=== PATIENT | female | born 2000 | race Caucasian/White ===

== ENCOUNTER 2018-08-06 16:56 | Emergency (ER) | payer SELFPAY ==
--- NOTE | 2018-08-06 17:04 | ER Report ---
History and Physical Time Seen By MD: 17:04 HPI/ROS CHIEF COMPLAINT: Chest pain HISTORY OF PRESENT ILLNESS: 18-year-old female patient presents to emergency room with complaint of chest pain. Patient states that she's this chest pain started approximately 20 minutes prior to arrival. Patient states that she's been doing well today. She had gone up and done some hiking and been home for a couple hours. She states that she was just sitting around watching television when she developed chest pain. She states the pain seems to be substernal. It is at the top one third of the chest. She states that she has some shortness of breath, she denies having any nausea, vomiting or diarrhea. Patient states that she has a history of a ventricular tachycardia. She states she was seen in the emergency room approximately one year ago for this. She states that it resolves spontaneously without any medications. She denies taking any medications at this time. REVIEW OF SYSTEMS: Respiratory: As noted above. Cardiovascular: As noted above Gastrointestinal: No vomiting, no abdominal pain. Musculoskeletal: No back pain. Allergies: Coded Allergies: No Known Drug Allergies (Unverified , 08/06/18) Home Meds Reported Medications Sertraline Hcl (ZOLOFT) 50 Mg Tablet, 1 TAB PO QDAY, TAB 08/06/18 Past Medical/Surgical History Patient has a past medical history of sinus tachycardia, rare alcohol use. Patient has a surgical history of tonsillectomy. Reviewed Nurses Notes: Yes Constitutional Vital Sign - Last 24 Hours 08/06/18 08/06/18 08/06/18 08/06/18 16:56 17:00 17:02 17:03 Temp 97.4 Pulse ??? 111 Resp 22 B/P (MAP) 118/81 (93) 120/84 (96) 120/84 Pulse Ox 99 O2 Delivery Room Air 08/06/18 08/06/18 08/06/18 08/06/18 17:06 17:16 17:26 17:30 Pulse 113 104 101 Resp 20 15 44 B/P (MAP) 91/63 (72) Pulse Ox 100 100 100 08/06/18 08/06/18 08/06/18 08/06/18 17:36 17:40 17:46 17:56 Pulse 99 98 ??? Resp 37 38 B/P (MAP) 95/71 (79) Pulse Ox 100 100 08/06/18 08/06/18 08/06/18 08/06/18 18:06 18:07 19:19 19:50 Temp 97.6 97.9 Pulse ??? B/P (MAP) 105/68 (80) Physical Exam General Appearance: The patient is alert, has no immediate need for airway protection and no current signs of toxicity. Respiratory: Chest is non tender, lungs are clear to auscultation. Patient is tachypneic. Cardiac: regular rhythm, patient does have a elevated heart rate of 103 bpm Gastrointestinal: Abdomen is soft and non tender, no masses, bowel sounds normal. Musculoskeletal: Neck: Neck is supple and non tender. Extremities have full range of motion and are non tender. Skin: No rashes or lesions. DIFFERENTIAL DIAGNOSIS: After history and physical exam differential diagnosis was considered for chest pain including but not limited to myocardial ischemia, pericarditis pulmonary embolus, chest wall pain, pleural inflammation and pu lmonary infectious causes. Medical Decision Making Data Points Result Diagram: 08/06/18 1708 08/06/18 1708 Laboratory Hematology Test 08/06/18 17:08 08/06/18 18:10 Red Blood Count 4.74 M/uL (4.17-5.56) Mean Corpuscular Volume 86.0 fL (80.0-96.0) Mean Corpuscular Hemoglobin 28.6 pg (26.0-33.0) Mean Corpuscular Hemoglobin Concent 33.3 g/dL (32.0-36.0) Red Cell Distribution Width 13.5 % (11.5-14.5) Mean Platelet Volume 7.4 fL (7.2-11.1) Neutrophils (%) (Auto) 70.7 % (39.4-72.5) Lymphocytes (%) (Auto) 19.7 % (17.6-49.6) Monocytes (%) (Auto) 8.8 % (4.1-12.4) Eosinophils (%) (Auto) 0.2 % (0.4-6.7) Basophils (%) (Auto) 0.6 % (0.3-1.4) Nucleated RBC Relative Count (auto) 0.0 /100WBC Neutrophils # (Auto) 9.0 K/uL (2.0-7.4) Lymphocytes # (Auto) 2.5 K/uL (1.3-3.6) Monocytes # (Auto) 1.1 K/uL (0.3-1.0) Eosinophils # (Auto) 0.0 K/uL (0.0-0.5) Basophils # (Auto) 0.1 K/uL (0.0-0.1) Nucleated RBC Absolute Count (auto) 0.00 K/uL D-Dimer Quantitative (PE/DVT) < 0.27 ug/ml (0-0.50) Sodium Level 137 mmol/L (137-145) Potassium Level 3.5 mmol/L (3.5-5.0) Chloride Level 104 mmol/L (98-107) Carbon Dioxide Level 23 mmol/L (22-31) Blood Urea Nitrogen 12 mg/dl (7-18) Creatinine 0.80 mg/dl (0.52-1.04) Glomerular Filtration Rate Calc > 60.0 Random Glucose 119 mg/dl (75-110) Calcium Level 9.1 mg/dl (8.4-10.2) Total Bilirubin 0.4 mg/dl (0.2-1.3) Aspartate Amino Transf (AST/SGOT) 31 U/L (0-35) Alanine Aminotransferase (ALT/SGPT) 21 U/L (0-56) Alkaline Phosphatase 62 U/L (0-126) Troponin I 0.618 ng/ml Total Protein 6.5 g/dl (6.3-8.2) Albumin 3.9 g/dl (3.5-5.0) Human Chorionic Gonadotropin, Qual Negative (NEGATIVE) Urine Color Yellow Urine Clarity Clear Urine pH 7.0 pH (4.8-9.5) Urine Specific [place] 1.009 Urine Protein Negative mg/dL (NEGATIVE) Urine Glucose (UA) Negative mg/dL (NEGATIVE) Urine Ketones Trace mg/dL (NEGATIVE) Urine Blood Negative (NEGATIVE) Urine Nitrite Negative (NEGATIVE) Urine Bilirubin Negative (NEGATIVE) Urine Urobilinogen Negative mg/dL (0.2-1.9) Urine Leukocyte Esterase Negative (NEGATIVE) Urine RBC None /HPF (0-2/HPF) Urine WBC <1 /HPF (0-5/HPF) Urine Squamous Epithelial Cells Moderate /LPF (</=FEW) Urine Bacteria Negative /HPF (NONE-FEW) Urine Mucus Few /HPF (NONE-FEW) Urine Opiates Screen Negative Urine Barbiturates Screen Negative Ur Tricyclic Antidepressants Screen Negative Urine Phencyclidine Screen Negative Urine Amphetamines Screen Negative Urine Benzodiazepines Screen Negative Urine Cocaine Screen Negative Urine Cannabinoids Screen Negative Chemistry Test 08/06/18 17:08 08/06/18 18:10 White Blood Count 12.7 k/uL (4.5-11.0) Red Blood Count 4.74 M/uL (4.17-5.56) Hemoglobin 13.6 g/dL (12.0-16.0) Hematocrit 40.7 % (34.0-47.0) Mean Corpuscular Volume 86.0 fL (80.0-96.0) Mean Corpuscular Hemoglobin 28.6 pg (26.0-33.0) Mean Corpuscular Hemoglobin Concent 33.3 g/dL (32.0-36.0) Red Cell Distribution Width 13.5 % (11.5-14.5) Platelet Count 357 K/uL (150-450) Mean Platelet Volume 7.4 fL (7.2-11.1) Neutrophils (%) (Auto) 70.7 % (39.4-72.5) Lymphocytes (%) (Auto) 19.7 % (17.6-49.6) Monocytes (%) (Auto) 8.8 % (4.1-12.4) Eosinophils (%) (Auto) 0.2 % (0.4-6.7) Basophils (%) (Auto) 0.6 % (0.3-1.4) Nucleated RBC Relative Count (auto) 0.0 /100WBC Neutrophils # (Auto) 9.0 K/uL (2.0-7.4) Lymphocytes # (Auto) 2.5 K/uL (1.3-3.6) Monocytes # (Auto) 1.1 K/uL (0.3-1.0) Eosinophils # (Auto) 0.0 K/uL (0.0-0.5) Basophils # (Auto) 0.1 K/uL (0.0-0.1) Nucleated RBC Absolute Count (auto) 0.00 K/uL D-Dimer Quantitative (PE/DVT) < 0.27 ug/ml (0-0.50) Glomerular Filtration Rate Calc > 60.0 Calcium Level 9.1 mg/dl (8.4-10.2) Total Bilirubin 0.4 mg/dl (0.2-1.3) Aspartate Amino Transf (AST/SGOT) 31 U/L (0-35) Alanine Aminotransferase (ALT/SGPT) 21 U/L (0-56) Alkaline Phosphatase 62 U/L (0-126) Troponin I 0.618 ng/ml Total Protein 6.5 g/dl (6.3-8.2) Albumin 3.9 g/dl (3.5-5.0) Human Chorionic Gonadotropin, Qual Negative (NEGATIVE) Urine Color Yellow Urine Clarity Clear Urine pH 7.0 pH (4.8-9.5) Urine Specific [place] 1.009 Urine Protein Negative mg/dL (NEGATIVE) Urine Glucose (UA) Negative mg/dL (NEGATIVE) Urine Ketones Trace mg/dL (NEGATIVE) Urine Blood Negative (NEGATIVE) Urine Nitrite Negative (NEGATIVE) Urine Bilirubin Negative (NEGATIVE) Urine Urobilinogen Negative mg/dL (0.2-1.9) Urine Leukocyte Esterase Negative (NEGATIVE) Urine RBC None /HPF (0-2/HPF) Urine WBC <1 /HPF (0-5/HPF) Urine Squamous Epithelial Cells Moderate /LPF (</=FEW) Urine Bacteria Negative /HPF (NONE-FEW) Urine Mucus Few /HPF (NONE-FEW) Urine Opiates Screen Negative Urine Barbiturates Screen Negative Ur Tricyclic Antidepressants Screen Negative Urine Phencyclidine Screen Negative Urine Amphetamines Screen Negative Urine Benzodiazepines Screen Negative Urine Cocaine Screen Negative Urine Cannabinoids Screen Negative Coagulation Test 08/06/18 17:08 D-Dimer Quantitative (PE/DVT) < 0.27 ug/ml Toxicology Test 08/06/18 18:10 Urine Opiates Screen Negative Urine Barbiturates Screen Negative Ur Tricyclic Antidepressants Screen Negative Urine Phencyclidine Screen Negative Urine Amphetamines Screen Negative Urine Benzodiazepines Screen Negative Urine Cocaine Screen Negative Urine Cannabinoids Screen Negative Urinalysis Test 08/06/18 18:10 Urine Color Yellow Urine Clarity Clear Urine pH 7.0 pH (4.8-9.5) Urine Specific [place] 1.009 Urine Protein Negative mg/dL (NEGATIVE) Urine Glucose (UA) Negative mg/dL (NEGATIVE) Urine Ketones Trace mg/dL (NEGATIVE) Urine Blood Negative (NEGATIVE) Urine Nitrite Negative (NEGATIVE) Urine Bilirubin Negative (NEGATIVE) Urine Urobilinogen Negative mg/dL (0.2-1.9) Urine Leukocyte Esterase Negative (NEGATIVE) Urine RBC None /HPF (0-2/HPF) Urine WBC <1 /HPF (0-5/HPF) Urine Squamous Epithelial Cells Moderate /LPF (</=FEW) Urine Bacteria Negative /HPF (NONE-FEW) Urine Mucus Few /HPF (NONE-FEW) EKG/Imaging EKG Interpretation 12 lead EKG: Rhythm: Sinus tachycardia with ventricular rate of 103 bpm [place]: normal QRS: normal ST segments: normal Imaging 2 VIEWS CHEST INDICATION: Chest pain COMPARISON: None available FINDINGS: Cardiomediastinal silhouette and pulmonary vessels within normal limits. There is no focal infiltrate or lobar consolidation. There is no pneumothorax or pleural effusion. No nodule. Upper abdomen is unremarkable. No acute bony abnormality. IMPRESSION: 1. No acute cardiopulmonary process. Report Dictated By: Sonido Mitchell at 08/06/2018 6:16 PM Report E-Signed By: Sonido Mitchell at 08/06/2018 6:17 PM ED Course/Re-evaluation ED Course Patient is medicated exam room, history and physical were obtained. Differential diagnoses were considered. On examination lungs are clear, patient is tachypneic, heart is regular although tachycardia, abdomen soft nontender. A CBC, CMP, chest x-ray, EKG, troponin were done. Lab results were unremarkable, patient did have a slightly elevated white count, 12.7. Lactulose were unremarkable, urine was negative, patient had a negative tox screen. Troponin did come back elevated at 0.618. I discussed the case with Dr. Sheldon, card iologist at [facility], who felt the patient likely had type II demand ischemia or possibly a congenital problem. He recommended admission. , hospitalist at [facility], was consultative and he accepted the patient for admission. They did not want to give the patient any heparin. I discussed this with the patient who verbalized understanding and agreement with plan. Decision to Disposition Date: Aug 06, 2018 Decision to Disposition Time: 18:14 Depart Departure Latest Vital Signs Vital Signs Date Time Temp Pulse Resp B/P (MAP) Pulse Ox O2 Delivery O2 Flow Rate FiO2 08/06/18 19:50 97.9 08/06/18 18:07 105/68 (80) 08/06/18 18:06 ??? 08/06/18 17:46 38 100 08/06/18 17:03 Room Air Impression: Primary Impression: Elevated troponin Condition: Condition Unchanged Disposition: [facility] Aug 06, 2018 17:04
[2018-08-06] MEDS ORDERED: NS(*) 0.9% 1000 ML BAG 1,000 ML IV ONE (17:10)
[2018-08-06] MEDS ORDERED: SERT-1 PO (17:11)
[2018-08-06 17:27] LABS: PLATELET COUNT, AUTOMATED 357 K/uL (150-450)
[2018-08-06] MEDS ORDERED: ASPIRIN 81 MG CHEW PO ONE (17:55)
--- NOTE | 2018-08-06 18:11 | EKG ---
FACILITY: [facility] PATIENT NAME: TK JARRELL : [id number] MR: [id number] V: [id number] EXAM DATE: ORDERING PHYSICIAN: VELIA AU TECHNOLOGIST: RAJINDER Francis Reason : CARDIAC Blood Pressure : / mmHG Vent. Rate : 103 BPM Atrial Rate : 103 BPM P-R Int : 134 ms QRS Dur : 090 ms QT Int : 346 ms P-R-T Axes : 058 070 061 degrees QTc Int : 453 ms Sinus tachycardia No acute appearing findings No previous ECGs available Confirmed by HEAVEN ADRIAN ([id number] on 08/07/2018 6:38:25 AM Referred By: ROE Confirmed By:HEAVEN ADRIAN
--- NOTE | 2018-08-06 18:21 | RADIOLOGY IMAGING REPORT ---
FACILITY: [facility] PATIENT NAME: Genevieve Leal : 2000 MR: [id number] V: [id number] EXAM DATE: ORDERING PHYSICIAN: VELIA AU TECHNOLOGIST: Location: [facility] [place] Patient: Genevieve Leal : 2000 Visit/Account:[id number] Date of Sevice: 08/06/2018 2 VIEWS CHEST INDICATION: Chest pain COMPARISON: None available FINDINGS: Cardiomediastinal silhouette and pulmonary vessels within normal limits. There is no focal infiltrate or lobar consolidation. There is no pneumothorax or pleural effusion. No nodule. Upper abdomen is unremarkable. No acute bony abnormality. IMPRESSION: 1. No acute cardiopulmonary process. Report Dictated By: Sonido Mitchell at 08/06/2018 6:16 PM Report E-Signed By: Sonido Mitchell at 08/06/2018 6:17 PM WSN:[id number]
[2018-08-06] MEDS ORDERED: ACETAMINOPHEN 500 MG TAB PO ONE (19:00)
[2018-08-06 20:00] VITALS: BP 106/76
== END 2018-08-06 20:09 | disposition short-term general hospital (02) ==
LOC: ER 17:18
DX: R79.89 Other specified abnormal findings of blood chemistry (principal)
CPT/HCPCS: 71046; 80305; 81001; 84484; 84703; 85025; 85379; 93005; 96360; 99285; J7030; 82040; 82247; 82310; 82374; 82435; 82565; 82947; 84075; 84132; 84155; 84295; 84450; 84460; 84520

== ENCOUNTER → 2018-08-06 | Outpatient (CLI) | payer SELFPAY ==
[~2018-08-06] MED LIST: SERT-1 PO
== END ==
LOC: AMB 20:00
PROVIDERS: ATTEND Nurse Practitioner
DX: R79.89 Other specified abnormal findings of blood chemistry (principal)
CPT/HCPCS: A0425; A0426

== ENCOUNTER → 2018-12-05 | Outpatient (CLI) | payer BC | LOC: LAB 10:08 | PROVIDERS: ATTEND Internal Medicine | DX: Z01.812 Encounter for preprocedural laboratory examination (principal); I47.1 Supraventricular tachycardia | CPT/HCPCS: 36415; 81001; 82310; 82374; 82435; 82565; 82947; 84132; 84295; 84520; 85027; 85610 ==